=== PATIENT | female | born 1980 | race African-American/Black ===

== ENCOUNTER 2016-06-10 19:31 | Emergency (ER) | payer BC, OTHER ==
[~2016-06-10] VITALS: Ht 172.7 cm; Wt 85.7 kg
[~2016-06-10 19:31] MED LIST: NAPR550T PO
[2016-06-10 19:35] VITALS: BP 157/57
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
[2016-06-10] MEDS ORDERED: IBUPROFEN 400 MG TABLET. PO ONE (20:00)
--- NOTE | 2016-06-11 06:06 | EKG ---
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
== END 2016-06-10 20:04 | disposition home or self-care (01) ==
LOC: ER 19:31
DX: R07.89 Other chest pain (principal); M25.562 Pain in left knee; G89.29 Other chronic pain; M54.5 Low back pain; G44.319 Acute post-traumatic headache, not intractable; M54.2 Cervicalgia; I34.1 Nonrheumatic mitral (valve) prolapse; F10.10 Alcohol abuse, uncomplicated; Z88.5 Allergy status to narcotic agent; V49.40XA Driver injured in collision with unspecified motor vehicles in traffic accident, initial encounter; Y93.I9 Activity, other involving external motion; Y92.410 Unspecified street and highway as the place of occurrence of the external cause; Y99.8 Other external cause status
CPT/HCPCS: 93005; 99283-25

== ENCOUNTER 2016-10-07 09:53 | Emergency (ER) | payer SELFPAY ==
[2016-10-07] MEDS ORDERED: fentaNYL PF VIAL 100 MCG/2 ML VIAL IV ONE ×2 (11:30→13:00)
[2016-10-07] MEDS ORDERED: ONDANSETRON PF 4 MG/2 ML VIAL. IV ONE (11:30)
[2016-10-07] MEDS ORDERED: IV NORMAL SALINE 1000ML BAG 1,000 ML IV ONE (11:30)
[2016-10-07] MEDS ORDERED: IOHEXOL 300 MG/ML 75 ML VIAL IV ONE ×2 (11:30→12:00)
[2016-10-07] MEDS ORDERED: CONTRAST GIVEN MC PRN ×2 (11:30→12:00)
[2016-10-07 11:43] LABS: BASO % 1 % (0-3); EOS % 2 % (0-3); HEMATOCRIT 39.6 % (36.0-47.0); HEMOGLOBIN 13.4 g/dL (12.0-15.5); LYMPH # 3.5 x10^3/uL (1.0-4.8); LYMPH % 45 % (24-48); MEAN CORPUSCULAR HEMOGLOBIN 31 pg (25-35); MEAN CORPUSCULAR HGB CONC 34 g/dL (31-37); MEAN CORPUSCULAR VOLUME 93 fL (79-100); MONO % 9 % (0-9); NEUT % 44 % (31-73); PLATELET COUNT 318 x10^3/uL (140-400); RED BLOOD COUNT 4.28 x10^6/uL (3.50-5.40); WHITE BLOOD COUNT 7.7 x10^3/uL (4.0-11.0)
[2016-10-07 11:55] LABS: CALCIUM 9.4 mg/dL (8.5-10.1); CREATININE 0.6 mg/dL (0.6-1.0); GFR 136.1; POTASSIUM 5.1 mmol/L (3.5-5.1)
[2016-10-07 11:58] LABS: ALBUMIN 3.5 g/dL (3.4-5.0); ALBUMIN/GLOBULIN RATIO 0.8 (1.0-1.7); TOTAL BILIRUBIN 0.5 mg/dL (0.2-1.0); TOTAL PROTEIN 7.8 g/dL (6.4-8.2)
[2016-10-07 12:18] LABS: BILIRUBIN,URINE NEGATIVE (NEG); GLUCOSE,URINE NEGATIVE (NEG); PH,URINE 5.5; PROTEIN,URINE NEGATIVE (NEG-TRACE)
[2016-10-07 12:19] LABS: BACTERIA,URINE FEW /HPF (0-FEW); NITRITE,URINE NEGATIVE (NEG); RBC,URINE OCC /HPF (0-2); SQUAMOUS EPITHELIAL CELL,UR MOD /LPF; UROBILINOGEN,URINE 0.2 mg/dL (0.2 mg/dL)
--- NOTE | 2016-10-07 12:33 | RAD ---
CT of the abdomen and pelvis with contrast, 10/07/2016: History: Right lower quadrant and vaginal pain Multidetector CT imaging was performed following an IV bolus injection of iodinated contrast material. No oral contrast material was administered for this study. No hepatic abnormality is detected. The gallbladder is unremarkable. The pancreas shows no abnormality. The spleen is of normal size. No renal or adrenal abnormality is detected. No abdominal or pelvic adenopathy is identified. The uterus is surgically absent. The bowel loops are not dilated. The appendix shows no abnormality. No free fluid or free air is evident in the abdomen or pelvis. IMPRESSION: No acute abdominal or pelvic abnormality is detected. PQRS Compliance Statement: One or more of the following individualized dose reduction techniques were utilized for this examination: 1. Automated exposure control 2. Adjustment of the mA and/or kV according to patient size 3. Use of iterative reconstruction technique
[2016-10-07 12:40] VITALS: BP 113/56
[2016-10-07] MEDS ORDERED: TRAM-48 PO (13:24)
[2016-10-07] MEDS ORDERED: METH-37 PO (13:24)
--- NOTE | 2016-10-07 13:25 | PHYS DOC ---
Past Medical History Past Medical History: Other Additional Past Medical Histor: mitral valve prolapse, slipped disc in back (l5 ) Past Surgical History: , Hysterectomy, Tonsillectomy Alcohol Use: Heavy Drug Use: Marijuana Adult General Chief Complaint Chief Complaint: VAGINAL PROBLEM HPI HPI Patient is a 35 year old female who presents with moderate pain radiating from her right vaginal area into the right lower quadrant that began 2 days ago. Patient states the pain is worse on movement. Patient denies any concerns for STDs. Denies any urgency frequency or dysuria. She states she's had a full hysterectomy. Review of Systems Review of Systems Constitutional: Denies fever or chills [] Eyes: Denies change in visual acuity, redness, or eye pain [] HENT: Denies nasal congestion or sore throat [] Respiratory: Denies cough or shortness of breath [] Cardiovascular: No additional information not addressed in HPI [] GI: Pain radiating from the right vaginal area into the right lower quadrant. : Denies dysuria or hematuria [] Musculoskeletal: Denies back pain or joint pain [] Integument: Denies rash or skin lesions [] Neurologic: Denies headache, focal weakness or sensory changes [] Endocrine: Denies polyuria or polydipsia [] Current Medications Current Medications Current Medications Medications (Trade) Dose Ordered Sig/Sandeep Start Time Stop Time Status Last Admin Dose Admin Fentanyl Citrate (Fentanyl 2ml Vial) 50 mcg 1X ONCE 10/07/16 13:00 10/07/16 13:03 DC 10/07/16 13:08 50 MCG Info (Do NOT chart on this entry -- for MONITORING) 1 each PRN DAILY PRN 10/07/16 12:00 10/09/16 11:59 Iohexol (Omnipaque 300 Mg/ml) 75 ml 1X ONCE 10/07/16 12:00 10/07/16 12:01 DC Ondansetron HCl (Zofran) 4 mg 1X ONCE 10/07/16 11:30 10/07/16 11:31 DC 10/07/16 11:40 4 MG Sodium Chloride 1,000 ml @ 1,000 mls/hr 1X ONCE 10/07/16 11:30 10/07/16 12:29 DC 10/07/16 11:39 1,000 MLS/HR Allergies Allergies Allergies Coded Allergies Type Severity Reaction Last Updated Verified codeine Allergy Intermediate 09/09/14 No hydrocodone Allergy Intermediate 09/09/14 No morphine Allergy Intermediate 09/09/14 No Physical Exam Physical Exam Constitutional: Well developed, well nourished, no acute distress, non-toxic appearance. [] HENT: Normocephalic, atraumatic, bilateral external ears normal, oropharynx moist, no oral exudates, nose normal. [] Eyes: PERRLA, EOMI, conjunctiva normal, no discharge. [] Neck: Normal range of motion, no tenderness, supple, no stridor. [] Cardiovascular:Heart rate regular rhythm, no murmur [] Lungs & Thorax: Bilateral breath sounds clear to auscultation [] Abdomen: Bowel sounds normal, soft, slight right lower quadrant tenderness on exam, no right upper quadrant tenderness, negative psoas sign, negative obturator sign, negative Rovsing, no masses, no pulsatile masses. [] Pelvic exam External pelvic appears normal. Cervix is absent. No CMT. Slight tenderness on palpation of the right lower adnexal/quadrant region. Trace amount of clear white discharge in the vaginal vault. Skin: Warm, dry, no erythema, no rash. [] Back: No tenderness, no CVA tenderness. [] Extremities: No tenderness, no cyanosis, no clubbing, ROM intact, no edema. [] Neurologic: Alert and oriented X 3, normal motor function, normal sensory function, no focal deficits noted. [] Psychologic: Affect normal, judgement normal, mood normal. [] Current Patient Data Vital Signs Vital Signs Date Time Temp Pulse Resp B/P (MAP) Pulse Ox O2 Delivery O2 Flow Rate FiO2 10/07/16 12:40 61 16 113/56 (75) 100 Room Air 10/07/16 10:29 98.0 98.0 Lab Values Laboratory Tests Test 10/07/16 09:35 10/07/16 10:28 10/07/16 11:30 POC Urine HCG, Qualitative Hcg negative (Negative) Urine Collection Type Void Urine Color Yellow Urine Clarity Clear Urine pH 5.5 Urine Specific Hardesty 1.020 Urine Protein Negative mg/dL (NEG-TRACE) Urine Glucose (UA) Negative mg/dL (NEG) Urine Ketones (Stick) Negative mg/dL (NEG) Urine Blood Small (NEG) Urine Nitrite Negative (NEG) Urine Bilirubin Negative (NEG) Urine Urobilinogen Dipstick 0.2 mg/dL (0.2 mg/dL) Urine Leukocyte Esterase Negative (NEG) Urine RBC Occ /HPF (0-2) Urine WBC 1-4 /HPF (0-4) Urine Squamous Epithelial Cells Mod /LPF Urine Bacteria Few /HPF (0-FEW) Urine Mucus Mod /LPF White Blood Count 7.7 x10^3/uL (4.0-11.0) Red Blood Count 4.28 x10^6/uL (3.50-5.40) Hemoglobin 13.4 g/dL (12.0-15.5) Hematocrit 39.6 % (36.0-47.0) Mean Corpuscular Volume 93 fL (79-100) Mean Corpuscular Hemoglobin 31 pg (25-35) Mean Corpuscular Hemoglobin Concent 34 g/dL (31-37) Red Cell Distribution Width 13.0 % (11.5-14.5) Platelet Count 318 x10^3/uL (140-400) Neutrophils (%) (Auto) 44 % (31-73) Lymphocytes (%) (Auto) 45 % (24-48) Monocytes (%) (Auto) 9 % (0-9) Eosinophils (%) (Auto) 2 % (0-3) Basophils (%) (Auto) 1 % (0-3) Neutrophils # (Auto) 3.4 x10^3uL (1.8-7.7) Lymphocytes # (Auto) 3.5 x10^3/uL (1.0-4.8) Monocytes # (Auto) 0.7 x10^3/uL (0.0-1.1) Eosinophils # (Auto) 0.1 x10^3/uL (0.0-0.7) Basophils # (Auto) 0.0 x10^3/uL (0.0-0.2) Sodium Level 138 mmol/L (136-145) Potassium Level 5.1 mmol/L (3.5-5.1) Chloride Level 104 mmol/L (98-107) Carbon Dioxide Level 29 mmol/L (21-32) Anion Gap 5 (6-14) L Blood Urea Nitrogen 10 mg/dL (7-20) Creatinine 0.6 mg/dL (0.6-1.0) Estimated GFR (Cockcroft-Gault) 136.1 BUN/Creatinine Ratio 17 (6-20) Glucose Level 126 mg/dL (70-99) H Calcium Level 9.4 mg/dL (8.5-10.1) Total Bilirubin 0.5 mg/dL (0.2-1.0) Aspartate Amino Transferase (AST) 40 U/L (15-37) H Alanine Aminotransferase (ALT) 45 U/L (14-59) Alkaline Phosphatase 56 U/L (46-116) Total Protein 7.8 g/dL (6.4-8.2) Albumin 3.5 g/dL (3.4-5.0) Albumin/Globulin Ratio 0.8 (1.0-1.7) L Lipase 115 U/L (73-393) Laboratory Tests 10/07/16 11:30 Laboratory Tests 10/07/16 11:30 Microbiology 10/07/16 Wet Prep - Final, Complete EKG EKG [] Radiology/Procedures Radiology/Procedures [] Course & Med Decision Making Course & Med Decision Making Pertinent Labs and Imaging studies reviewed. (See chart for details) Patient is in the ED with complaints of right vaginal pain radiating into the right upper quadrant, patient's pain is worse on movement. She's had full hysterectomy. CBC no acute findings, CMP with AST of 40. Urine negative for infection, wet prep negative for any acute findings. CT of the abdomen and pelvic is negative for any acute findings. I highly suspect this patient pulled her groin muscle. She was discharged with Robaxin and Ultram. Follow-up with her PCP in one week. Dragon Disclaimer Dragon Disclaimer This electronic medical record was generated, in whole or in part, using a voice recognition dictation system. Departure Departure Impression: Primary Impression: Groin strain Disposition: HOME, SELF-CARE Condition: STABLE Referrals: NO PCP (PCP) follow up with your doctor or a doctor from the list provided in one week Patient Instructions: Groin Strain Additional Instructions: You were seen for pain. We suspect to pulled your groin muscle on the right side. Your workup today was negative. Follow-up with one of the doctors provided from the list we gave you in one week. Come back to the ED if symptoms worsen. Scripts Tramadol Hcl (ULTRAM) 50 Mg Tablet 1 TAB PO Q6HRS, #30 TAB Prov: JONNYAPETER APRN 10/07/16 Methocarbamol (ROBAXIN) 500 Mg Tablet 1 TAB PO TID, #30 TAB Prov: PETER MELENDEZ APRN 10/07/16 Problem Qualifiers Primary Impression: Groin strain Encounter type: initial encounter Laterality: right Qualified Codes: S76.211A - Strain of adductor muscle, fascia and tendon of right thigh, initial encounter PETER MELENDEZ APRN Oct 07, 2016 13:25
== END 2016-10-07 13:36 | disposition home or self-care (01) ==
LOC: ER 09:53
DX: S39.011A Strain of muscle, fascia and tendon of abdomen, initial encounter (principal); Z90.10 Acquired absence of unspecified breast and nipple; F10.10 Alcohol abuse, uncomplicated; F12.10 Cannabis abuse, uncomplicated; Z98.890 Other specified postprocedural states; Z88.5 Allergy status to narcotic agent; Z88.6 Allergy status to analgesic agent; X58.XXXA Exposure to other specified factors, initial encounter; Y93.89 Activity, other specified; Y99.8 Other external cause status; Y92.89 Other specified places as the place of occurrence of the external cause
CPT/HCPCS: 36415; 74177; 80053; 81001; 81025; 83690; 85027; 87491; 87591; 99285; J2405; J3010; J7030; Q0111; Q9967